=== PATIENT | female | born 1970 | race Caucasian/White ===

== ENCOUNTER 2016-10-02 07:51 | Emergency (ER) | payer OTHER ==
[2016-10-02 08:03] VITALS: RESP 16; O2SAT 100
--- NOTE | 2016-10-02 08:40 | C.PDOC ---
History Of Present Illness 45-year-old female, presents to the emergency department with complaints of itchy eyes, runny nose, sneezing, ongoing x2 weeks. patient normally takes Claritin, which is not helping. States she went to PMD who prescribed Atarax, that she has been using with minimal relief, resulting in her coming to ED for evaluation. Denies fevers or chills. Time Seen by Provider: 10/02/16 08:11 Chief Complaint (Nursing): Cough, Cold, Congestion History Per: Patient History/Exam Limitations: no limitations Onset/Duration Of Symptoms: Days Current Symptoms Are (Timing): Still Present Associated Symptoms: Sinus Drainage. denies: Fever, Chills Past Medical History Reviewed: Historical Data, Nursing Documentation, Vital Signs Vital Signs: Last Vital Signs Temp 98.7 F 10/02/16 08:43 Pulse 64 10/02/16 08:43 Resp 16 10/02/16 08:43 BP 132/76 10/02/16 08:43 Pulse Ox 100 10/02/16 10:32 - Medical History PMH: Anemia, Arthritis (RA), Osteoporosis Surgical History: Family History: States: No Known Family Hx - Social History Hx Tobacco Use: No Hx Alcohol Use: No Hx Substance Use: No - Immunization History Hx Tetanus Toxoid Vaccination: No Hx Influenza Vaccination: Yes Hx Pneumococcal Vaccination: No Review Of Systems Except As Marked, All Systems Reviewed And Found Negative. Constitutional: Negative for: Fever Eyes: Positive for: Redness, Other (itchy) ENT: Positive for: Nose Discharge. Negative for: Ear Pain, Throat Pain Cardiovascular: Negative for: Chest Pain, Palpitations Respiratory: Negative for: Cough, Shortness of Breath Gastrointestinal: Negative for: Vomiting Musculoskeletal: Negative for: Back Pain Neurological: Negative for: Headache, Dizziness Physical Exam - Physical Exam Appears: Non-toxic, No Acute Distress Skin: Warm, Dry, No Rash Head: Atraumatic, Normacephalic, No Tenderness, No Swelling Eye(s): bilateral: PERRL, EOMI, Other (conjunctival injection) Ear(s): Bilateral: Normal (no erythema) Nose: Discharge (clear rhinorrhea) Oral Mucosa: Moist Lips: Normal Appearing Neck: Normal ROM, Supple Cardiovascular: Rhythm Regular, No Murmur Respiratory: Normal Breath Sounds, No Accessory Muscle Use Extremity: Bilateral: Atraumatic, Normal ROM Neurological/Psych: Oriented x3, Normal Speech ED Course And Treatment O2 Sat by Pulse Oximetry: 100 Medical Decision Making Medical Decision Makiny/o F comes in w/ itchy eyes and rhinorrhea. Exam unremarkable. symptoms c.w allergic rhinitis. will prescribe zyrtec and nasal spray to use. Disposition Counseled Patient/Family Regarding: Diagnosis, Need For Followup, Rx Given - Disposition Disposition: HOME/ ROUTINE Disposition Time: 08:37 Condition: STABLE Additional Instructions: [place] la medicina de la alergia diariamente Avinash spray nasal todos los stack Prescriptions: Cetirizine HCl [Zyrtec] 10 mg PO DAILY #30 capsule Fluticasone Propionate [Flonase] 1 spray NS DAILY #1 bottle Instructions: Allergic Rhinitis (ED) Print Language: KOREAN - POA Present On Arrival: None - Clinical Impression Clinical Impression: Allergic rhinitis - Scribe Statement The provider has reviewed the documentation as recorded by the Scribe (Melissa Leal) All medical record entries made by the Scribe were at my direction and personally dictated by me. I have reviewed the chart and agree that the record accurately reflects my personal performance of the history, physical exam, medical decision making, and the department course for this patient. I have also personally directed, reviewed, and agree with the discharge instructions and disposition.
[2016-10-02 08:44] VITALS: BP 132/76; PULSE 64; TEMP 98.7
== END 2016-10-02 08:54 | disposition home or self-care (01) ==
LOC: C.ER 07:51
DX: J30.9 Allergic rhinitis, unspecified (principal)

== ENCOUNTER 2017-02-21 00:32 | Emergency (ER) | payer OTHER ==
[2017-02-21 00:41] VITALS: RESP 20
--- NOTE | 2017-02-21 00:59 | C.PDOC ---
History Of Present Illness Patient is a 46 y/o female who presents to the ED with a complaint of runny nose and post-nasal drop for the past 1 day. Patient notes sore throat and feeling febrile but denies taking temperature; denies SOB, loss of appetite, abdominal pain, vomiting, or diarrhea. No other physical complaints at this time. Chief Complaint (Nursing): Cough, Cold, Congestion History Per: Patient History/Exam Limitations: language barrier Onset/Duration Of Symptoms: Hrs Current Symptoms Are (Timing): Still Present Location Of Pain: Sinus/es Associated Symptoms: Cough, Sputum, Sinus Drainage, Nasal Congestion. denies: Fever, Chills, Sore Throat, Neck Pain, Myalgias Severity: Mild Recent travel outside of the [place]: No Additional History Per: Patient Past Medical History Reviewed: Historical Data, Nursing Documentation, Vital Signs Vital Signs: Last Vital Signs Temp 97.8 F 02/21/17 02:14 Pulse 68 02/21/17 02:14 Resp 20 02/21/17 02:14 BP 111/78 02/21/17 02:14 Pulse Ox 98 02/21/17 02:14 - Medical History PMH: Anemia, Arthritis (RA), Osteoporosis Surgical History: No Surg Hx, Family History: States: No Known Family Hx - Social History Hx Tobacco Use: No Hx Alcohol Use: No Hx Substance Use: No - Immunization History Hx Tetanus Toxoid Vaccination: No Hx Influenza Vaccination: Yes Hx Pneumococcal Vaccination: No Review Of Systems Constitutional: Positive for: Fever (subjective) ENT: Positive for: Nose Discharge, Throat Pain (sore throat), Other (post-nasal drip) Respiratory: Negative for: Shortness of Breath Gastrointestinal: Negative for: Vomiting, Abdominal Pain, Diarrhea Physical Exam - Physical Exam Appears: Well, Non-toxic, No Acute Distress Skin: Normal Color, Warm, Dry Head: Atraumatic, Normacephalic Eye(s): bilateral: Normal Inspection Nose: Normal Oral Mucosa: Moist Throat: Normal Chest: Symmetrical Cardiovascular: Rhythm Regular, No Murmur Respiratory: Normal Breath Sounds, No Rales, No Rhonchi, No Wheezing Gastrointestinal/Abdominal: Soft, No Tenderness Neurological/Psych: Oriented x3, Normal Speech, Normal Cognition, Other (no focal deficits) ED Course And Treatment O2 Sat by Pulse Oximetry: 100 - Radiology CXR: Interpreted by Me, Viewed By Me CXR Interpretation: Yes: No Acute Disease Medical Decision Making Medical Decision Making: clinical impression: URI Plan: * CXR Patient given URI instructions and discharged upon re-evaluation. Disposition - Disposition Referrals: [facility] [Outside] Disposition: HOME/ ROUTINE Disposition Time: 02:04 Condition: GOOD Prescriptions: Fexofenadine/Pseudoephedrine [Arlet-D 24 Hour Tablet] 1 each PO DAILY #7 tab.er.24h Instructions: Upper Respiratory Infection (ED) Forms: Rounds (Nauruan) - Clinical Impression Clinical Impression: Upper respiratory infection - Scribe Statement The provider has reviewed the documentation as recorded by the Scribe Yola Hernandez All medical record entries made by the Scribe were at my direction and personally dictated by me. I have reviewed the chart and agree that the record accurately reflects my personal performance of the history, physical exam, medical decision making, and the department course for this patient. I have also personally directed, reviewed, and agree with the discharge instructions and disposition.
[2017-02-21 02:15] VITALS: BP 111/78; PULSE 68; TEMP 97.8
[2017-02-21 04:50] VITALS: O2SAT 100
--- NOTE | 2017-02-21 08:40 | RAD ---
HISTORY: cough COMPARISON: 02/11/2012 TECHNIQUE: Chest PA and lateral FINDINGS: LUNGS: No infiltrate. Circumscribed rounded nodular opacity at right base may reflect nipple shadow. Recommend repeat PA chest radiograph with nipple markers. No nodule identified in the lateral projection. PLEURA: No significant pleural effusion identified. No pneumothorax apparent. CARDIOVASCULAR: Normal. OSSEOUS STRUCTURES: No significant abnormalities. VISUALIZED UPPER ABDOMEN: Normal. OTHER FINDINGS: None. IMPRESSION: No infiltrate. Circumscribed nodular opacity at right base may represent nipple shadow. Recommend repeat PA chest radiography with nipple markers.
== END 2017-02-21 02:16 | disposition home or self-care (01) ==
LOC: C.ER 00:32
DX: J06.9 Acute upper respiratory infection, unspecified (principal)

== ENCOUNTER 2017-02-27 12:59 | Emergency (ER) | payer OTHER ==
[2017-02-27 13:19] VITALS: O2SAT 100
--- NOTE | 2017-02-27 13:32 | C.PDOC ---
History Of Present Illness 46F reports to ED after being called re abnormal xray result. she says she has been having productive cough for 1 week. no improvement since being seen here before. no fever or sob. Time Seen by Provider: 02/27/17 13:30 Chief Complaint (Nursing): Abnormal Labs Past Medical History Vital Signs: Last Vital Signs Temp 98.4 F 02/27/17 13:15 Pulse 67 02/27/17 13:15 Resp 20 02/27/17 13:15 BP 115/72 02/27/17 13:15 Pulse Ox 100 02/27/17 13:32 - Medical History PMH: Anemia, Arthritis (RA), Osteoporosis Surgical History: Family History: States: Other Other Family History: nc - Social History Hx Tobacco Use: No Hx Alcohol Use: No Hx Substance Use: No - Immunization History Hx Tetanus Toxoid Vaccination: No Hx Influenza Vaccination: No Hx Pneumococcal Vaccination: No Review Of Systems Constitutional: Negative for: Fever, Chills, Weakness, Malaise Cardiovascular: Negative for: Chest Pain, Palpitations Respiratory: Positive for: Cough, Sputum. Negative for: Shortness of Breath, Hemoptysis, Wheezing Gastrointestinal: Negative for: Nausea, Vomiting, Abdominal Pain Neurological: Negative for: Weakness, Numbness, Headache Physical Exam - Physical Exam Appears: Well, Non-toxic, No Acute Distress Skin: Warm, Dry Eye(s): bilateral: PERRL Oral Mucosa: Moist Cardiovascular: Rhythm Regular Respiratory: No Decreased Breath Sounds, No Accessory Muscle Use, No Rales, No Rhonchi, No Stridor, No Wheezing Neurological/Psych: Oriented x3, Other (no focal deficits) ED Course And Treatment O2 Sat by Pulse Oximetry: 100 Medical Decision Making Medical Decision Making: cxr- naf. nipples marker noted in position of previously questions nodule Disposition - Disposition Disposition: HOME/ ROUTINE Disposition Time: 14:18 Condition: GOOD Forms: Novel (East Timorese) - Clinical Impression Clinical Impression: Bronchitis
--- NOTE | 2017-02-27 14:29 | RAD ---
HISTORY: please do nipple markers COMPARISON: No prior. TECHNIQUE: Chest PA and lateral FINDINGS: LUNGS: No pulmonary infiltrate. Nipple markers showed that previously identified nodule at right base corresponds to the right nipple. The left nipple is also identified as a circumscribed nodule. There is no pulmonary mass. Small calcified granulomas are noted in the upper lobe bilateral incidentally. This is evident, in retrospect on prior examination. PLEURA: No significant pleural effusion identified. No pneumothorax apparent. CARDIOVASCULAR: Normal. OSSEOUS STRUCTURES: No significant abnormalities. VISUALIZED UPPER ABDOMEN: Normal. OTHER FINDINGS: None. IMPRESSION: No pulmonary mass. Old granulomatous disease. .
[2017-02-27 14:31] VITALS: BP 118/68; PULSE 64; RESP 18; TEMP 98.5
== END 2017-02-27 14:31 | disposition home or self-care (01) ==
LOC: C.ER 12:59
DX: J40 Bronchitis, not specified as acute or chronic (principal)

== ENCOUNTER 2017-04-20 23:52 | Emergency (ER) | payer OTHER ==
[2017-04-21 00:04] VITALS: TEMP 98
--- NOTE | 2017-04-21 00:22 | C.PDOC ---
History Of Present Illness The patient, whose PMHx includes Gastritis, presents to the ED for evaluation of left lower quadrant abdominal pain which began at around 1700 today. Patient reports she has not eaten all day. She denies fever, chills, nausea, and vomiting. Time Seen by Provider: 04/21/17 00:22 Chief Complaint (Nursing): Abdominal Pain History Per: Patient History/Exam Limitations: no limitations Onset/Duration Of Symptoms: Hrs Current Symptoms Are (Timing): Still Present Severity: Mild Pain Scale Rating Of: 2 Location Of Pain/Discomfort: LLQ Radiation Of Pain To:: None Quality Of Discomfort: "Pain" Associated Symptoms: denies: Fever, Chills, Nausea, Vomiting Exacerbating Factors: None Alleviating Factors: None Last Bowel Movement: Today Recent travel outside of the [place]: No Additional History Per: Patient Abnormal Vaginal Bleeding: No Past Medical History Reviewed: Historical Data, Nursing Documentation, Vital Signs Vital Signs: Last Vital Signs Temp 98 F 04/21/17 00:01 Pulse 67 04/21/17 00:01 Resp 16 04/21/17 00:01 BP 134/75 04/21/17 00:01 Pulse Ox 99 04/21/17 01:57 - Medical History PMH: Anemia, Arthritis (RA), Osteoporosis Surgical History: Family History: States: Unknown Family Hx - Social History Hx Tobacco Use: No Hx Alcohol Use: No Hx Substance Use: No - Immunization History Hx Tetanus Toxoid Vaccination: No Hx Influenza Vaccination: No Hx Pneumococcal Vaccination: No Review Of Systems Constitutional: Negative for: Fever, Chills Cardiovascular: Negative for: Chest Pain, Palpitations Respiratory: Negative for: Cough, Shortness of Breath Gastrointestinal: Positive for: Abdominal Pain (left lower quadrant ). Negative for: Nausea, Vomiting, Diarrhea, Constipation Genitourinary: Negative for: Dysuria, Frequency, Hematuria Skin: Negative for: Rash, Lesions, Jaundice, Bruising Neurological: Negative for: Weakness, Numbness Physical Exam - Physical Exam Appears: Non-toxic, No Acute Distress Skin: Warm, Dry Head: Normacephalic Oral Mucosa: Moist Neck: Supple Chest: Symmetrical, No Deformity, No Tenderness Cardiovascular: Rhythm Regular, No Murmur Respiratory: No Rales, No Rhonchi, No Wheezing Gastrointestinal/Abdominal: Soft, Tenderness (to left lower quadrant ), No Guarding, No Rebound Extremity: Normal ROM, Capillary Refill (less than 2 seconds ) Neurological/Psych: Oriented x3 Gait: Steady ED Course And Treatment - Laboratory Results Result Diagrams: 04/21/17 01:35 04/21/17 01:35 O2 Sat by Pulse Oximetry: 99 (on RA) Pulse Ox Interpretation: Normal Progress Note: Bloodwork and urinalysis ordered and reviewed. Pepcid IVP, Toradol IVP, Zofran IVP and IV Fluids administered. Medical Decision Making Medical Decision Making: Upon provider reevaluation patient is feeling better, is medically stable, and requires no further treatment in the ED at this time. Patient will be discharged home with Rx for naproxen . Counseling was provided and all questions were answered regarding diagnosis and need for follow up with dr zurita. There is agreement to discharge plan. Return if symptoms persist or worsen. 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 I have reviewed the chart and agree that the record accurately reflects my personal performance of the history, physical exam, medical decision making, and the department course for this patient. I have also personally directed, reviewed, and agree with the discharge instructions and disposition.
[2017-04-21] MEDS ORDERED: Sodium Chloride 0.9% 1,000 ML IV ONE (01:16)
[2017-04-21] MEDS ORDERED: Sodium Chloride 0.9% 1,000 ML ONE (01:21)
[2017-04-21 01:38] LABS: EOS % 0.3 % (0.0-4.0); HEMOGLOBIN 12.6 g/dL (11.0-16.0); LYMPH # 1.3 K/uL (1.0-4.3); LYMPH % 17.9 % (20.0-40.0); MEAN CELL VOLUME 88.7 fL (81.0-99.0); MEAN CORPUSCULAR HEMOGLOBIN 29.3 pg (27.0-31.0); MEAN PLATELET VOLUME 10.1 fL (7.2-11.7); MONO # 0.3 K/uL (0.0-0.8); MONO % 4.4 % (0.0-10.0); NEUT # 5.6 K/uL (1.8-7.0); NEUT % 77.4 % (50.0-75.0); NRBC % 0.1 % (0.0-2.0); RBC 4.31 Mil/uL (3.80-5.20); RED CELL DISTRIBUTION WIDTH 14.4 % (11.5-14.5); WHITE BLOOD COUNT 7.3 K/uL (4.8-10.8)
[2017-04-21 01:44] LABS: SQUAMOUS EPITHIAL 1 /hpf (0-5); URINE BILIRUBIN NEGATIVE (NEGATIVE); URINE BLOOD NEGATIVE (NEGATIVE); URINE CLARITY Hazy (Clear); URINE COLOR Straw (YELLOW); URINE GLUCOSE (UA) NORMAL (Normal); URINE LEUKOCYTE ESTERASE NEG Leu/uL (Negative); URINE PROTEIN NEGATIVE (NEGATIVE); URINE UROBILINOGEN NORMAL mg/dL (0.2-1.0)
[2017-04-21 01:45] LABS: HCG,QUALITATIVE URINE NEGATIVE (NEGATIVE)
[2017-04-21 01:56] LABS: ALB/GLOB RATIO 1.3 (1.0-2.1); ALBUMIN 3.8 g/dL (3.5-5.0); ALT/SGPT 27 U/L (9-52); AST/SGOT 18 U/L (14-36); BLOOD UREA NITROGEN 7 mg/dL (7-17); CALCIUM 8.5 mg/dl (8.6-10.4); GFR AFRICAN-AMERICAN > 60; GFR NON-AFRICAN AMERICAN > 60; LIPASE 76 U/L (23-300)
[2017-04-21] MEDS ORDERED: Iohexol 350mg/ml 100 ML ONE (03:12)
--- NOTE | 2017-04-21 05:37 | CT ---
EXAM: CT Abdomen and Pelvis With Intravenous Contrast EXAM DATE/TIME: 04/21/2017 3:05 AM CLINICAL HISTORY: 46 years old, female; Pain; Abdominal pain; Patient HX: 12-13-15; Additional info: Llq pain TECHNIQUE: Axial computed tomography images of the abdomen and pelvis with intravenous contrast. All CT scans at this facility use one or more dose reduction techniques, viz.: automated exposure control; ma/kV adjustment per patient size (including targeted exams where dose is matched to indication; i.e. head); or iterative reconstruction technique. Coronal and sagittal reformatted images were created and reviewed. CONTRAST: 100 mL of [id number] administered intravenously. COMPARISON: Prior CT abdomen and pelvis of 2015-12-13 10:13 FINDINGS: LIMITATIONS: Mild streak/motion artifact. LOWER THORAX: No infiltrate seen in the lung bases. ABDOMEN: LIVER: No acute abnormality of the liver identified. GALLBLADDER AND BILE DUCTS: No CT evidence of acute cholecystitis. No evidence of significant biliary ductal dilatation. PANCREAS: No CT evidence of acute pancreatitis. SPLEEN: No acute abnormality of the spleen identified. ADRENALS: No acute abnormality of the adrenal glands identified. KIDNEYS AND URETERS: No acute abnormality of the kidneys identified. No evidence of significant hydrouereteronephrosis. STOMACH AND BOWEL: Retained stool noted throughout the colon, with no evidence of a significant large bowel obstruction or fecal impaction. Bowel is otherwise unremarkable in appearance, allowing for motion artifact. No evidence of bowel obstruction. APPENDIX: Appendix is seen, and is within normal limits in appearance. PELVIS: BLADDER: Mild thickening of the bladder wall. REPRODUCTIVE: 7 x 4.3 cm ovoid low density cystic mass in the midline pelvis posteriorly, suspicious for a large left ovarian cystic lesion. There is a smaller 3 x 2.8 cm right ovarian cystic lesion. Both of these lesions have attenuations consistent with simple to mildly complex fluid. There is no associated air. Evidence of previous hysterectomy. ABDOMEN and PELVIS: INTRAPERITONEAL SPACE: Small amount of free fluid in the cul-de-sac. No evidence of free air. BONES/JOINTS: No acute fractures or other acute bony abnormality noted. SOFT TISSUES: No acute abnormality of the visualized soft tissues is seen. VASCULATURE: No evidence of abdominal aortic aneurysm. No evidence of periaortic hemorrhage. LYMPH NODES: No evidence of diffuse lymphadenopathy. IMPRESSION: - Bilateral cystic ovarian lesions, the larger, on the left measuring up to 7 cm. Pelvic ultrasound is recommended for further evaluation, given the size of this lesion. - Free fluid in the cul-de-sac. - Mild bladder wall thickening. This is a nonspecific finding, but can be seen with cystitis. Recommend clinical correlation. - See above for remaining findings.
[2017-04-21 06:08] VITALS: BP 130/70; PULSE 70; RESP 20; O2SAT 98
== END 2017-04-21 06:08 | disposition home or self-care (01) ==
LOC: C.ER 23:52
DX: R10.32 Left lower quadrant pain (principal); N83.201 Unspecified ovarian cyst, right side; N83.202 Unspecified ovarian cyst, left side; M06.9 Rheumatoid arthritis, unspecified; M81.0 Age-related osteoporosis without current pathological fracture
CPT/HCPCS: 74177; 80053; 81001; 83690; 84703; 85025; 96361; 96374; 96375; 99284; J1885; J2405; J7040; Q9967

== ENCOUNTER 2017-04-23 07:27 | Emergency (ER) | payer OTHER ==
[2017-04-23] MEDS ORDERED: Oxycodone/Acetaminophen 5/325 mg Tab PO STA (08:04)
[2017-04-23] MEDS ORDERED: Oxycodone/Acetaminophen 5/325 mg Tab ONE (08:08)
[2017-04-23 08:17] LABS: HCG,QUALITATIVE URINE NEGATIVE (NEGATIVE)
[2017-04-23 08:24] LABS: SQUAMOUS EPITHIAL 1 /hpf (0-5); URINE BACTERIA RARE (<OCC); URINE BILIRUBIN NEGATIVE (NEGATIVE); URINE BLOOD NEGATIVE (NEGATIVE); URINE CLARITY Clear (Clear); URINE COLOR Straw (YELLOW); URINE GLUCOSE (UA) NORMAL (Normal); URINE LEUKOCYTE ESTERASE NEG Leu/uL (Negative); URINE PROTEIN NEGATIVE (NEGATIVE); URINE UROBILINOGEN NORMAL mg/dL (0.2-1.0)
--- NOTE | 2017-04-23 09:50 | C.PDOC ---
History Of Present Illness 46 female come in for re-evaluation of diffuse lower abdominal pain for past 6 days. Pt reports, was seen here on 04/21/17 when blood work and CT abd/pelvis review and was without acute abnormalities. Pt reports, pain is constant, diffuse lower abdominal, non-radiating. Otherwise, pt denies fever, chills, recent illness, CP, SOB, dyspnea, diaphoresis, N/V/D, back pain, vaginal discharge or bleeding. Ambulate to Ed for evaluation, appear sin pain. Time Seen by Provider: 04/23/17 07:41 Chief Complaint (Nursing): Abdominal Pain History Per: Patient Onset/Duration Of Symptoms: Gradual Past Medical History Reviewed: Historical Data, Nursing Documentation, Vital Signs Vital Signs: Last Vital Signs Temp 98.5 F 04/23/17 11:14 Pulse 74 04/23/17 11:14 Resp 18 04/23/17 11:14 BP 104/64 04/23/17 11:14 Pulse Ox 100 04/23/17 11:20 - Medical History PMH: Anemia, Arthritis (RA), Osteoporosis Surgical History: (#3) Other Surgeries: Hysterectomy, 2015 Family History: States: Unknown Family Hx - Social History Hx Tobacco Use: No Hx Alcohol Use: No Hx Substance Use: No - Immunization History Hx Tetanus Toxoid Vaccination: No Hx Influenza Vaccination: No Hx Pneumococcal Vaccination: No Review Of Systems Except As Marked, All Systems Reviewed And Found Negative. Constitutional: Negative for: Fever, Chills ENT: Negative for: Throat Pain Cardiovascular: Negative for: Chest Pain, Palpitations Respiratory: Negative for: Cough, Shortness of Breath, Wheezing Gastrointestinal: Positive for: Abdominal Pain. Negative for: Nausea, Vomiting , Diarrhea Genitourinary: Negative for: Dysuria, Frequency, Incontinence, Hematuria, Vaginal Discharge, Vaginal Bleeding Musculoskeletal: Negative for: Neck Pain, Back Pain Skin: Negative for: Rash Neurological: Negative for: Altered Mental Status, Headache, Dizziness Physical Exam - Physical Exam Appears: Well, Non-toxic, No Acute Distress Skin: Normal Color, Warm, Dry, No Rash Head: Normacephalic Eye(s): bilateral: PERRL Nose: No Discharge Oral Mucosa: Moist, No Drooling Tongue: Normal Appearing Lips: Normal Appearing Throat: No Erythema, No Drooling Neck: Trachea Midline, Supple Cardiovascular: Rhythm Regular, No Murmur, No JVD Respiratory: No Decreased Breath Sounds, No Accessory Muscle Use, No Stridor, No Wheezing Gastrointestinal/Abdominal: Soft, Tenderness (diffuse lower), No Distention, No Guarding, No Rebound Back: No CVA Tenderness Extremity: Normal ROM, No Deformity, No Swelling ED Course And Treatment - Laboratory Results Result Diagrams: 04/23/17 12:13 04/23/17 12:13 Lab Interpretation: No Acute Changes O2 Sat by Pulse Oximetry: 100 Pulse Ox Interpretation: Normal - CT Scan/US CT abd/pelvis on 04/21/17 Other Rad Studies (CT/US): Radiology Report Reviewed CT/US Interpretation: [place] [facility] Division of Radiology. [address] [place] [address]. Tel. no. . . . Patient Name: BECKIE DUMONT . Pt. Address: [address] [place] [address]. Rec #: [id number][place] [address]: Alberto Joyce MD. Pt Order Location: [facility] : 1970 Female Age: 46 Order #: [id number]. Reason for exam: llq pain. . . . . . CT Scan. . . ABD PELVIS IV CONTRAST ONLY Exam Date: 04/21/17. . This imaging exam was performed at [facility]. EXAM: CT Abdomen and Pelvis With Intravenous Contrast. . EXAM DATE /TIME: 04/21/2017 3:05 AM. . CLINICAL HISTORY: 46 years old, female; Pain; Abdominal pain; Patient HX: 12-13-15; Additional. info: Llq pain. . TECHNIQUE : Axial computed tomography images of the abdomen and pelvis with intravenous. contrast. All CT scans at this facility use one or more dose reduction. techniques, viz.: automated exposure control; ma/kV adjustment per patient size. (including targeted exams where dose is matched to indication; i.e. head) ; or. iterative reconstruction technique. Coronal and sagittal reformatted images were created and reviewed. . CONTRAST: 100 mL of [id number] administered intravenously. . COMPARISON: Prior CT abdomen and pelvis of 2016 -11-05 10:13. . FINDINGS: LIMITATIONS: Mild streak/motion artifact. LOWER THORAX: No infiltrate seen in the lung bases. . ABDOMEN: LIVER: No acute abnormality of the liver identified. GALLBLADDER AND BILE DUCTS: No CT evidence of acute cholecystitis. No. evidence of significant biliary ductal dilatation. PANCREAS: No CT evidence of acute pancreatitis. SPLEEN: No acute abnormality of the spleen identified. ADRENALS: No acute abnormality of the adrenal glands identified. KIDNEYS AND URETERS: No acute abnormality of the kidneys identified. No. evidence of significant hydrouereteronephrosis. STOMACH AND BOWEL: Retained stool noted throughout the colon, with no. evidence of a significant large bowel obstruction or fecal impaction. Bowel is. otherwise unremarkable in appearance, allowing for motion artifact. No. evidence of bowel obstruction. APPENDIX: Appendix is seen, and is within normal limits in appearance. . PELVIS: BLADDER: Mild thickening of the bladder wall. REPRODUCTIVE: 7 x 4.3 cm ovoid low density cystic mass in the midline. pelvis posteriorly, suspicious for a large left ovarian cystic lesion. There is. a smaller 3 x 2.8 cm right ovarian cystic lesion. Both of these lesions have. attenuations consistent with simple to mildly complex fluid. There is no. associated air. Evidence of previous hysterectomy. . ABDOMEN and PELVIS: INTRAPERITONEAL SPACE: Small amount of free fluid in the cul-de-sac. No. evidence of free air. BONES/JOINTS: No acute fractures or other acute bony abnormality noted. SOFT TISSUES: No acute abnormality of the visualized soft tissues is seen. VASCULATURE: No evidence of abdominal aortic aneurysm. No evidence of. periaortic hemorrhage. LYMPH NODES: No evidence of diffuse lymphadenopathy. . IMPRESSION: - Bilateral cystic ovarian lesions, the larger, on the left measuring up to 7. cm. Pelvic ultrasound is recommended for further evaluation, given the size of. this lesion. - Free fluid in the cul-de-sac. - Mild bladder wall thickening. This is a nonspecific finding, but can be seen. with cystitis. Recommend clinical correlation. - See above for remaining findings. . Dictated By: Lyla Jung MD. Dictated Date/Time: 04/21/17535. Signed By: Lyla Jung MD. Date Signed : 04/21/17535. Transcribed By: [facility]. Transcribe Date/Time: 04/21/17535. [facility]02/MT Transvaginal US Other Rad Studies (CT/US): Radiology Report Reviewed CT/US Interpretation: Creator : Jose Herrmann MD. Dictator : Jose Herrmann MD. Firearms Instructor : Writer : Jose Herrmann MD. Approver2 : Report Date : 04/23/2017 10:59:27. My Comment : . HISTORY: Right ovarian lesion/pain. COMPARISON: None available. TECHNIQUE: Transabdominal and transvaginal. FINDINGS: UTERUS: Status post hysterectomy. ENDOMETRIUM: N/A. CERVIX: N/A. RIGHT OVARY: Measures 5.3 x 3.3 x 4.2 cm. Septated cyst versus 2 adjacent cysts, Conglomerately measuring 3.5 x 2.1 x 3.8 cm. Normal flow. LEFT OVARY: Measures 6.7 x 5.2 x 8.2 cm. No solid mass. Normal flow. Complex cyst with homogeneous low-level internal echoes, 5.2 x 3.1 x 6.5 cm. There is an internal septation seen. Likely hemorrhagic cyst. Nevertheless, followup with transvaginal ultrasound examination is advised 6-8 weeks. FREE FLUID: Minimal free fluid in cul-de-sac. OTHER FINDINGS: None. IMPRESSION: Complex left ovarian cyst, 6.5 cm with an internal septation. Likely hemorrhagic cyst. Recommend followup transvaginal pelvic ultrasound examination 6-8 weeks. Septated cyst versus 2 adjacent simple cysts in right ovary, Conglomerately 2.1 x 3.5 x 3.8 cm. Minimal fluid in cul-de-sac. Status post hysterectomy. Progress Note: Pt was OBS in ED for 4 hours. US results review and discussed with [facility]-on-call . As per , pt is stable for discahrge now with outpt f/u as scheduled with her [facility] [employer] [facility] on 04/25/17. On re-evaluation, pt resting comfortably, not in any apparent distress. Afebrile, hemodynamicaly stable. Non-toxic. Neck: SUpple, (-) JVD, (-) carotid bruits B/L. Lungs: CTA B/L, BS equal B/L. CVS: (+)S1S2, reg. Abd: benign, (-) guardiong, (-) rebound. Back: (-) CVA tenderness. Blood work review and appears normal, no leukocytosis or left shift. BMP- no electolytes abnormalities. UA- normal study. Results review and discussed with pt. Pt advised on course of ds,. Pt has clinical findings c/w ovarian cyst, left, complex. Pt ref. to F/U with [facility] in 2 days for re-eavl. return to ED if any worsening or new changes. Disposition Counseled Patient/Family Regarding: Studies Performed, Diagnosis, Need For Followup, Rx Given - Disposition [facility] Disposition: HOME/ ROUTINE Disposition Time: 13:03 Condition: STABLE Additional Instructions: Take pain medication as prescribed Alternate Percocet/Ibuprofen Follow up with [facility] [facility] as scheduled on as scheduled for further evaluation and treatment. Prescriptions: oxyCODONE/Acetaminophen [Percocet 5/325 mg Tab] 1 tab PO BID PRN #7 tab PRN Reason: Pain Instructions: Ovarian Cysts Forms: [employer] (Malawian) Print Language: POLISH - Clinical Impression Clinical Impression: Ovarian cyst
--- NOTE | 2017-04-23 11:01 | US ---
HISTORY: Right ovarian lesion/pain COMPARISON: None available. TECHNIQUE: Transabdominal and transvaginal FINDINGS: UTERUS: Status post hysterectomy ENDOMETRIUM: N/A CERVIX: N/A RIGHT OVARY: Measures 5.3 x 3.3 x 4.2 cm. Septated cyst versus 2 adjacent cysts, Conglomerately measuring 3.5 x 2.1 x 3.8 cm. Normal flow. LEFT OVARY: Measures 6.7 x 5.2 x 8.2 cm. No solid mass. Normal flow. Complex cyst with homogeneous low-level internal echoes, 5.2 x 3.1 x 6.5 cm. There is an internal septation seen. Likely hemorrhagic cyst. Nevertheless, followup with transvaginal ultrasound examination is advised 6-8 weeks. FREE FLUID: Minimal free fluid in cul-de-sac OTHER FINDINGS: None. IMPRESSION: Complex left ovarian cyst, 6.5 cm with an internal septation. Likely hemorrhagic cyst. Recommend followup transvaginal pelvic ultrasound examination 6-8 weeks. Septated cyst versus 2 adjacent simple cysts in right ovary, Conglomerately 2.1 x 3.5 x 3.8 cm. Minimal fluid in cul-de-sac. Status post hysterectomy.
[2017-04-23 11:15] VITALS: RESP 18
[2017-04-23 11:20] VITALS: O2SAT 100
[2017-04-23 12:26] LABS: BASO % 0.3 % (0.0-2.0); EOS # 0.1 K/uL (0.0-0.7); EOS % 1.6 % (0.0-4.0); LYMPH # 1.6 K/uL (1.0-4.3); LYMPH % 19.2 % (20.0-40.0); MEAN CELL VOLUME 88.8 fL (81.0-99.0); MEAN CORPUSCULAR HEMOGLOBIN 29.5 pg (27.0-31.0); MEAN CORPUSCULAR HGB CONC 33.2 g/dL (33.0-37.0); MEAN PLATELET VOLUME 10.3 fL (7.2-11.7); MONO # 0.5 K/uL (0.0-0.8); MONO % 6.6 % (0.0-10.0); NEUT # 5.9 K/uL (1.8-7.0); NEUT % 72.3 % (50.0-75.0); RBC 3.72 Mil/uL (3.80-5.20); RED CELL DISTRIBUTION WIDTH 14.1 % (11.5-14.5); WHITE BLOOD COUNT 8.2 K/uL (4.8-10.8)
[2017-04-23 12:40] LABS: CALCIUM 8.1 mg/dl (8.6-10.4); GFR AFRICAN-AMERICAN > 60; GFR NON-AFRICAN AMERICAN > 60
[2017-04-23 12:49] LABS: BLOOD UREA NITROGEN 6 mg/dL (7-17)
--- NOTE | 2017-04-23 13:17 | CP.PCM.CON ---
History of Present Illness - History of Present Illness History of Present Illness: 46 y/o P3 hx of MAIN with pelvic pain s/p US with 6.5 cm cyst, small amoutn of free fluid, pt rpeorts pain since adn report was seen in ER and dc earlier but had increasd in pain throughotu abodmen. pt dnies any fever, chills , nause, vmiting, cp, sob, vagialnb bleeding, dschage, itching, odor. Pt reprots pain is diffuse and cramping, alleviated iwth pain medicaion given in ER now 06/16, intially much stronger. pt dneis any exacebatign factors. Pt rpeors she has a follow up appointemtn with [facility] [employer] [facility] on Tuesday. OB: P3 CxS x 3 [facility] [employer] [facility]: s/p MAIN 2015 pelvic pain, +ovaria ncyst PMH: Denies PSH: CxS x 3, MAIN FHX :michael SHX: negaitve etoh/tobacc/drugs MEDS: None NKDA Review of Systems - Review of Systems All systems: reviewed and no additional remarkable complaints except Review of Systems: pain - Constitutional Constitutional: absent: As Per HPI, Anorexia, Chills, Daytime Sleepiness, Excessive Sweating, Fatigue, Fever, Frequent Falls, Headache, Increased Appetite , Lethargy, Malaise, Night Sweats, Snoring, Sleep Apnea, Weight Gain, Weight Loss, Weakness, Other - Cardiovascular Cardiovascular: absent: As Per HPI, Acrocyanosis, Chest Pain, Chest Pain at Rest , Chest Pain with Activity, Claudication, Diaphoresis, Dyspnea, Dyspnea on Exertion, Edema, Irregular Heart Rhythm, Pain Radiating to Arm/Neck/Jaw, Leg Edema, Leg Ulcers, Lightheadedness, Orthopnea, Palpitations, Paroxysmal Nocturnal Dyspnea, Pedal Edema, Radiating Pain, Rapid Heart Rate, Slow Heart Rate, Syncope, Other - Respiratory Respiratory: absent: As Per HPI, Cough, Dyspnea, Hemoptysis, Dyspnea on Exertion , Wheezing, Snoring, Stridor, Pain on Inspiration, Chest Congestion, Excessive Mucous Production, Change in Mucous Color, Pain with Coughing, Other - Gastrointestinal Gastrointestinal: Abdominal Pain. absent: As Per HPI, Belching, Bloating, Change in Bowel Habits, Change in Stool Character, Coffee Ground Emesis, Constipation, Cramping, Diarrhea, Dyspepsia, Dysphagia, Early Satiety, Excessive Flatus, Fecal Incontinence, Heartburn, Hematemesis, Hematochezia, Loose Stools, Melena, Nausea, Odynophagia, Temesmus, Vomiting, Other Past Patient History - Past Social History Smoking Status: Never Smoked Chewing Tobacco Use: No Cigar Use: No - HEMATOLOGICAL/ONCOLOGICAL Hx Anemia: Yes - MUSCULOSKELETAL/RHEUMATOLOGICAL Hx Arthritis: Yes (RA) Hx Osteoporosis: Yes - PSYCHIATRIC Hx Substance Use: No - SURGICAL HISTORY Hx Section: Yes (X 3) Hx Hysterectomy: Yes (2014) - ANESTHESIA Hx Anesthesia: Yes Hx Anesthesia Reactions: No Meds Home Medications: Home Medication List Medication Instructions Recorded Confirmed Type oxyCODONE/Acetaminophen [Percocet 1 tab PO BID PRN #7 tab 04/23/17 Rx 5/325 mg Tab] Allergies/Adverse Reactions: Allergies Allergy/AdvReac Type Severity Reaction Status Date / Time No Known Allergies Allergy Verified 04/23/17 07:34 Physical Exam - Constitutional Appears: Well, Non-toxic - Head Exam Head Exam: ATRAUMATIC, NORMAL INSPECTION - Eye Exam Eye Exam: EOMI Pupil Exam: NORMAL ACCOMODATION - ENT Exam ENT Exam: Mucous Membranes Moist, Normal Exam - Neck Exam Neck exam: Positive for: Normal Inspection - Respiratory Exam Respiratory Exam: Clear to Auscultation Bilateral, NORMAL BREATHING PATTERN - Cardiovascular Exam Cardiovascular Exam: REGULAR RHYTHM, +S1, +S2 - GI/Abdominal Exam GI & Abdominal Exam: Normal Bowel Sounds, Soft, Tenderness Additional comments: Mild TTP over RLQ, no guarding, no reboud tendnere, no rigdity, +BS External Gentia; :no gross abnomralites Vagi: no blood no discharge Uterus ;absent Adnea: non tender b/l Anus/Perienum: groslsly normal - Rectal Exam Rectal Exam: NORMAL INSPECTION Results - Vital Signs Recent Vital Signs: Last Vital Signs Temp 98.5 F 04/23/17 11:14 Pulse 74 04/23/17 11:14 Resp 18 04/23/17 11:14 BP 104/64 04/23/17 11:14 Pulse Ox 100 04/23/17 13:16 - Labs Result Diagrams: 04/23/17 12:13 04/23/17 12:13 Labs: Laboratory Results - last 24 hr 0304/23/17 04/23/17 08:08 12:13 12:13 WBC 8.2 RBC 3.72 L Hgb 11.0 Hct 33.0 L MCV 88.8 MCH 29.5 MCHC 33.2 RDW 14.1 Plt Count 111 L MPV 10.3 Neut % (Auto) 72.3 Lymph % (Auto) 19.2 L Nolan % (Auto) 6.6 Eos % (Auto) 1.6 Baso % (Auto) 0.3 Neut # (Auto) 5.9 Lymph # (Auto) 1.6 Nolan # (Auto) 0.5 Eos # (Auto) 0.1 Baso # (Auto) 0.0 Differential Comment Sodium 138 Potassium 3.7 Chloride 104 Carbon Dioxide 25 Anion Gap 13 BUN 6 L Creatinine 0.5 L Est GFR ( Amer) > 60 Est GFR (Non-Af Amer) > 60 Random Glucose 99 Calcium 8.1 L Urine Color Straw Urine Clarity Clear Urine pH 7.0 Ur Specific [place] 1.006 Urine Protein Negative Urine Glucose (UA) Normal Urine Ketones Negative Urine Blood Negative Urine Nitrate Negative Urine Bilirubin Negative Urine Urobilinogen Normal Ur Leukocyte Esterase Neg Urine WBC (Auto) < 1 Ur Squamous Epith Cells 1 Urine Bacteria Rare Urine HCG, Qual Negative - Imaging and Cardiology US - abdomen Status: Report reviewed by me Assessment & Plan (1) Ovarian cyst Assessment and Plan: US reviweed 6.5cm septated with +Flow, small free fluid Hb: 11 Currently stable 46 y/o P3 hx o fTAH with ovarian cyst, currently stable -VSS, Hb 11 -ptadvised likley cyst ruture with managment expectntan, medical vs srugical -low supscin for ovarian torsion -pain mangnet -has f/u o/p appointemtn wt private [employer] [facility] Tuesday -precautoin given -bdomianl binder, heating pad Status: Acute
[2017-04-23 13:39] VITALS: BP 100/62; PULSE 70; TEMP 98.2
== END 2017-04-23 13:37 | disposition home or self-care (01) ==
LOC: C.ER 07:27
DX: N83.202 Unspecified ovarian cyst, left side (principal)
CPT/HCPCS: 76830; 76856; 80048; 81001; 84703; 85025; 96374; 99285; J1885